=== PATIENT | female | born 1995 | race Caucasian/White ===

== ENCOUNTER 2017-02-28 20:09 | Emergency (ER) | payer MEDICAID, OTHER ==
[2017-02-28 20:53] VITALS: BP 118/80
[2017-02-28] MEDS ORDERED: IBUPROFEN 800 MG TABLET PO STA (21:59)
[2017-02-28] MEDS ORDERED: DEXAMETHASONE 10 MG/ML VIAL PO STA (21:59)
[2017-02-28] MEDS ORDERED: AZITHROMYCIN 250 MG TABLET PO STA (21:59)
--- NOTE | 2017-02-28 22:03 | ED Physician Documentation ---
PD HPI URI - Stated complaint Stated Complaint: RT EAR PX - Chief complaint Chief Complaint: Heent - History obtained from History obtained from: Patient - History of Present Illness Timing - onset: How many days ago (2) Timing duration: Days (2) Timing details: Gradual onset Pain level max: 7 Pain level now: 7 Associated symptoms: Nasal congestion, Rhinorrhea, Sinus pain, Other (R ear pain ). No: Fever, Chills, Sore throat Contributing factors: No: Sick contact, Travel, Immunocompromised, Unimmunized, COPD / asthma Recently seen: Not recently seen Review of Systems Constitutional: denies: Fever, Chills Ears: reports: Ear pain Nose: reports: Rhinorrhea / runny nose, Congestion GI: denies: Vomiting Skin: denies: Rash Musculoskeletal: denies: Neck pain, Back pain PD PAST MEDICAL HISTORY - Past Medical History Past Medical History: No - Past Surgical History Past Surgical History: No - Present Medications Home Medications: Ambulatory Orders Medication Instructions Recorded Confirmed Azithromycin [Zithromax] 250 mg PO DAILY #4 tablet 02/28/17 Ibuprofen [Motrin] 800 mg PO Q8H PRN #30 tablet 02/28/17 - Allergies Allergies/Adverse Reactions: Allergies Allergy/AdvReac Type Severity Reaction Status Date / Time No Known Drug Allergies Allergy Verified 02/28/17 21:49 - Social History Does the pt smoke?: No Smoking Status: Never smoker Does the pt drink ETOH?: No Does the pt have substance abuse?: No - Immunizations Immunizations are current?: Yes - POLST Patient has POLST: No PD ED PE NORMAL - Vitals Vital signs reviewed: Yes - General General: Alert and oriented X 3, No acute distress - HEENT HEENT: PERRL, Moist mucous membranes, Pharynx benign, Other (R TM - erythematous , dull, bulging with loss of landmarks. L TM normal) - Neck Neck: Supple, no meningeal sign, No adenopathy - Cardiac Cardiac: RRR - Respiratory Respiratory: No respiratory distress, Clear bilaterally - Derm Derm: Warm and dry, No rash - Neuro Neuro: Alert and oriented X 3 - Psych Psych: Normal mood, Normal affect Results - Vitals Vitals: Vital Signs - 24 hr 02/28/17 20:50 Temperature 36.8 C Heart Rate 122 H Respiratory 18 Rate Blood Pressure 118/80 O2 Saturation 98 Oxygen O2 Source Room air PD MEDICAL DECISION MAKING - ED course Complexity details: considered differential, d/w patient, d/w family ED course: Patient is a 21-year-old female with what appears to be a viral upper respiratory infection complicated by right acute otitis media. Will place on antibiotics for this. She is well-appearing, nontoxic. Afebrile. Also given a dose of dexamethasone. Patient is not , breast-feeding or trying to become . Patient counseled regarding signs and symptoms for which I believe and urgent re-evaluation would be necessary. Patient with good understanding of and agreement to plan and is comfortable going home at this time This document was made in part using voice recognition software. While efforts are made to proofread this document, sound alike and grammatical errors may occur. Departure - Departure Disposition: Home, Self Care Clinical Impression: Otitis media Qualifiers: Otitis media type: suppurative Chronicity: acute Laterality: right Recurrence: not specified as recurrent Spontaneous tympanic membrane rupture: without spontaneous rupture Qualified Code(s): H66.001 - Acute suppurative otitis media without spontaneous rupture of ear drum, right ear Condition: Good Instructions: ED Otitis Media Acute Adult Follow-Up: your,doctor in 1 week if not better [Other] Prescriptions: Ibuprofen [Motrin] 800 mg PO Q8H PRN #30 tablet PRN Reason: PAIN &/OR FEVER Azithromycin [Zithromax] 250 mg PO DAILY #4 tablet Comments: Return if you worsen. Take all antibiotics until gone. Discharge Date/Time: 02/28/17 22:11
[2017-02-28] MEDS ORDERED: AZITHROMYCIN 250 MG TABLET PO ONE (22:10)
[2017-02-28] MEDS ORDERED: IBUPROFEN 800 MG TABLET PO ONE (22:10)
[2017-02-28] MEDS ORDERED: DEXAMETHASONE 10 MG/ML VIAL ONE (22:10)
== END 2017-02-28 22:11 | disposition home or self-care (01) ==
LOC: ED 20:09
DX: H66.001 Acute suppurative otitis media without spontaneous rupture of ear drum, right ear (principal)
CPT/HCPCS: 99283; A9270